=== PATIENT | male | born 1960 | race Caucasian/White ===

== ENCOUNTER 2016-11-22 12:45 | Observation (INO) | payer OTHER ==
[~2016-11-22] VITALS: Ht 172.7 cm; Wt 105.0 kg
[2016-11-22] VITALS (9 sets, daily range): BP systolic 108–123; BP diastolic 71–78; PULSE 68–73; RESP 18–20; TEMP 97.7–98.5; O2SAT 97–100
[~2016-11-22 12:45] MED LIST: APIX2.5T PO; DIGO0.25 PO; LEVA500T PO; OMEP20TA PO; SPIR25 PO; SYMB160A INH; [UNRECOGNIZED DRUG - CODE]
--- NOTE | 2016-11-22 13:46 | PD ---
HPI Chief Complaint: Dizziness Time Seen by Provider: 13:46 Travel History International Travel<30 days: No Contact w/Intl Traveler<30days: No Traveled to known affect area: No History of Present Illness HPI 56-year-old male with history as CVA in July 2016, a fib on eloquis, with pacemaker placement in October presents to emergency department for evaluation of head pressure with episodes of dizziness. This began yesterday. Patient states that at times there has been an intermittent chest sensation with it but mostly it head pressure and dizziness. He denies any other focal deficits or weakness. States that he has no deficit from his previous CVA except for memory difficulty. Denies any recent illnesses, fever, or chills. States he was advised by his head teacher Dr. garcia to come to the emergency department. PFSH Past Medical History Arthritis: Yes (right knee ) Cancer: No Cardiovascular Problems: Yes (PACEMAKER 10/29/16) Congestive Heart Failure: Yes COPD: Yes Cerebrovascular Accident: Yes (CVA 08/12/16) Endocrine: No Genitourinary: No Musculoskeletal: Yes Neurologic: No Psychiatric: No Reproductive: No Respiratory: Yes Sleep Apnea: Yes Past Surgical History Abdominal Surgery: Yes (abdominal hernia removal ) Social History Tobacco Use: Yes Substance Use: No Allergies-Medications (Allergen,Severity, Reaction): Coded Allergies: Ibuprofen (Verified Allergy, Unknown, Rash, 11/22/16) Reported Meds & Prescriptions Reported Meds & Active Scripts Active Eliquis (Apixaban) 2.5 Mg Tab 2.5 Mg PO BID To be started on , 08/22/16 Scd Soft Sleeves/Knee Johnny (Misc. Devices) 1 Mis Mis Units Reported Oxycodone-Acetaminophen 5-325 mg Tab 1 Tab PO Q6H PRN Torsemide 10 Mg Tab 10 Mg PO BID Keppra (Levetiracetam) 500 Mg Tab 500 Mg PO BID Lisinopril 2.5 Mg Tab 2.5 Mg PO DAILY Digoxin 0.25 Mg Tab 0.25 Mg PO DAILY Symbicort Inh (Budesonide/Formoterol Fumarate) 160-4.5 Mcg/Act Aero 2 Puff INH Q12HR Review of Systems Except as stated in HPI: all other systems reviewed are Neg Physical Exam Narrative GENERAL: Well-nourished male patient, ambulatory and in no acute distress SKIN: Warm and dry. HEAD: Atraumatic. Normocephalic. EYES: Pupils equal and round. No scleral icterus. No injection or drainage. ENT: No nasal bleeding or discharge. Mucous membranes pink and moist. NECK: Trachea midline. No JVD. CARDIOVASCULAR: Regular rate and rhythm. No murmur appreciated. RESPIRATORY: No accessory muscle use. Clear to auscultation. Breath sounds equal bilaterally. GASTROINTESTINAL: Abdomen soft, non-tender, nondistended. Hepatic and splenic margins not palpable. MUSCULOSKELETAL: No obvious deformities. No clubbing. No cyanosis. No edema. NEUROLOGICAL: Awake and alert. No obvious cranial nerve deficits. Motor grossly within normal limits. Normal speech. PSYCHIATRIC: Appropriate mood and affect; insight and judgment normal. Data Data Last Documented VS Vital Signs Date Time Temp Pulse Resp B/P Pulse Ox O2 Delivery O2 Flow Rate FiO2 11/22/16 16:02 99 Room Air 11/22/16 16:01 68 18 112/75 11/22/16 12:48 97.7 Orders Electrocardiogram (11/22/16 ) Basic Metabolic Panel (Bmp) (11/22/16 13:46) B-Type Natriuretic Peptide (11/22/16 13:46) Ckmb (Isoenzyme) Profile (11/22/16 13:46) Complete Blood Count With Diff (11/22/16 13:46) Magnesium (Mg) (11/22/16 13:46) Prothrombin Time / Inr (Pt) (11/22/16 13:46) Act Partial Throm Time (Ptt) (11/22/16 13:46) Troponin I (11/22/16 13:46) Chest, Single Ap (11/22/16 13:46) Ct Brain W/O Iv Contrast(Rout) (11/22/16 ) CKMB (11/22/16 14:06) CKMB% (11/22/16 14:06) Acetaminophen (Tylenol) (11/22/16 17:00) Place In Observation (11/22/16 ) Code Status (11/22/16 16:59) Vital Signs (Adult) Q4H (11/22/16 16:59) Activity Oob With Assistance (11/22/16 16:59) Wind Turbine Engineer / Telemetry .CONTINUOUS (11/22/16 16:59) Diet Heart Healthy (11/22/16 Dinner) Sodium Chloride 0.9% Flush (Ns Flush) (11/22/16 17:00) Sodium Chloride 0.9% Flush (Ns Flush) (11/22/16 21:00) Acetaminophen (Tylenol) (11/22/16 17:00) Ondansetron Inj (Zofran Inj) (11/22/16 17:00) Bisacodyl Supp (Dulcolax Supp) (11/22/16 17:00) Magnesium Hydroxide Liq (Milk Of Magnesi (11/22/16 17:00) Creatine Kinase (Cpk) (11/22/16 16:59) Creatine Kinase (Cpk) (11/22/16 22:59) Troponin I (11/22/16 16:59) Troponin I (11/22/16 22:59) Pt Request For Service (11/22/16 16:59) Scd Bilateral/Knee High RIA.BID (11/22/16 16:59) Naloxone Inj (Narcan Inj) (11/22/16 17:00) Consult Cardiology (11/22/16 ) Apixaban (Eliquis) (11/22/16 21:00) Budeson-Formot 160-4.5 Mg Inh (Symbicort (11/22/16 21:00) Digoxin (Lanoxin) (11/23/16 09:00) Levetiracetam (Keppra) (11/22/16 21:00) Lisinopril (Prinivil) (11/23/16 09:00) Oxycodone-Acetamin 5-325 Mg (Percocet (11/22/16 18:00) Torsemide (Demadex) (11/22/16 21:00) Admit Order (Ed Use Only) (11/22/16 17:12) Labs Laboratory Tests Test 11/22/16 14:06 White Blood Count 6.1 TH/MM3 Red Blood Count 5.40 MIL/MM3 Hemoglobin 17.1 GM/DL Hematocrit 50.4 % Mean Corpuscular Volume 93.2 FL Mean Corpuscular Hemoglobin 31.7 PG Mean Corpuscular Hemoglobin 34.0 % Concent Red Cell Distribution Width 14.3 % Platelet Count 131 TH/MM3 Mean Platelet Volume 10.0 FL Neutrophils (%) (Auto) 71.3 % Lymphocytes (%) (Auto) 15.8 % Monocytes (%) (Auto) 11.0 % Eosinophils (%) (Auto) 1.4 % Basophils (%) (Auto) 0.5 % Neutrophils # (Auto) 4.4 TH/MM3 Lymphocytes # (Auto) 1.0 TH/MM3 Monocytes # (Auto) 0.7 TH/MM3 Eosinophils # (Auto) 0.1 TH/MM3 Basophils # (Auto) 0.0 TH/MM3 CBC Comment DIFF FINAL Differential Comment Prothrombin Time 15.0 SEC Prothromb Time International 1.3 RATIO Ratio Activated Partial 29.4 SEC Thromboplast Time Sodium Level 140 MEQ/L Potassium Level 3.6 MEQ/L Chloride Level 98 MEQ/L Carbon Dioxide Level 32.5 MEQ/L Anion Gap 10 MEQ/L Blood Urea Nitrogen 19 MG/DL Creatinine 1.28 MG/DL Estimat Glomerular Filtration 58 ML/MIN Rate Random Glucose 84 MG/DL Calcium Level 8.9 MG/DL Magnesium Level 1.9 MG/DL Total Creatine Kinase 152 U/L Creatine Kinase MB 4.9 NG/ML Troponin I 0.24 NG/ML B-Type Natriuretic Peptide 295 PG/ML MDM Medical Decision Making Medical Screen Exam Complete: Yes Emergency Medical Condition: Yes Medical Record Reviewed: Yes Differential Diagnosis Headache versus electrolyte abnormality versus intracranial hemorrhage versus cardiac etiology Narrative Course 56-year-old male presents to emergency department for evaluation. Patient appears without distress. Workup was initiated in triage. Once a medical bed becomes available, patient will be transferred and care assumed by that provider. Condition: Stable Karen Linda Nov 22, 2016 13:46
--- NOTE | 2016-11-22 14:25 | RADRPT ---
EXAM DATE/TIME: 11/22/2016 14:00 [facility] COMPARISON: CHEST SINGLE AP, August 12, 2016, 18:37. INDICATIONS : Headache. MEDICAL HISTORY : Chronic obstructive pulmonary disease. SURGICAL HISTORY : Pacemaker. ENCOUNTER: Initial ACUITY: 1 day PAIN SCORE: 0/10 LOCATION: Bilateral chest FINDINGS: A single view of the chest demonstrates the lungs to be symmetrically aerated without evidence of mas s, infiltrate or effusion. Pacemaker is on the right. The cardiomediastinal contours are unremarkabl e. Osseous structures are intact. CONCLUSION: No acute disease. Kristian Berry MD FACR on November 22, 2016 at 14:22 Board Certified Radiologist. This report was verified electronically.
[2016-11-22 14:28] LABS: AUTOMATED NEUTROPHIL # 4.4 TH/MM3 (1.8-7.7); BASOPHIL % 0.5 % (0.0-2.0); EOSINOPHIL # 0.1 TH/MM3 (0-0.4); EOSINOPHIL % 1.4 % (0.0-4.0); HEMATOCRIT 50.4 % (39.0-51.0); HEMO FLAGS DIFF FINAL; LYMPH % 15.8 % (9.0-44.0); MEAN CELL VOLUME 93.2 FL (80.0-100.0); MEAN CORPUSCULAR HEMOGLOBIN 31.7 PG (27.0-34.0); NEUT % 71.3 % (16.0-70.0); PLATELET COUNT 131 TH/MM3 (150-450); RED CELL DISTRIBUTION WIDTH 14.3 % (11.6-17.2); WHITE BLOOD COUNT 6.1 TH/MM3 (4.0-11.0)
--- NOTE | 2016-11-22 14:34 | RADRPT ---
EXAM DATE/TIME: 11/22/2016 14:15 [facility] COMPARISON: MRI BRAIN W/O CONTRAST, August 19, 2016, 9:30. CT BRAIN W/O CONTRAST, Therese tse 2015, 18:24. INDICATIONS : Dizziness. RADIATION DOSE: 56.35 CTDIvol (mGy) MEDICAL HISTORY : Stroke. Cardiovascular disease Chronic obstructive pulmonary disease. SURGICAL HISTORY : Pacemaker. ENCOUNTER: Initial ACUITY: 2 days PAIN SCALE: 0/10 LOCATION: Cranial TECHNIQUE: Multiple contiguous axial images were obtained of the head. Using automated exposure control and adjustment of the mA and/or kV according to patient size, radiation dose was kept as low as reasonably achievable to obtain optimal diagnostic quality images. 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 The left hemisphere is unremarkable. Ventricular size appears appropriate. Posterior fossa appears normal. 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 Kristian Berry MD FACR on November 22, 2016 at 14:25 Board Certified Radiologist. This report was verified electronically.
[2016-11-22 14:36] LABS: APTT (PATIENT) 29.4 SEC (24.3-30.1); INTERNATIONAL NORMALIZED RATIO 1.3 RATIO
[2016-11-22 14:41] LABS: ANION GAP 10 MEQ/L (5-15); BICARBONATE 32.5 MEQ/L (21.0-32.0); BLOOD UREA NITROGEN 19 MG/DL (7-18); CHLORIDE 98 MEQ/L (98-107); GLOMERULAR FILTRATION RATE 58 ML/MIN (>89); MAGNESIUM 1.9 MG/DL (1.5-2.5); POTASSIUM 3.6 MEQ/L (3.5-5.1); SODIUM (NA) 140 MEQ/L (136-145)
[2016-11-22 14:44] LABS: CREATINE KINASE 152 U/L (39-308)
[2016-11-22 14:56] LABS: CKMB 4.9 NG/ML (0.5-3.6)
[2016-11-22] MEDS ORDERED: LEVE500 PO (16:15)
[2016-11-22] MEDS ORDERED: OXYC1TAB63 PO (16:15)
[2016-11-22] MEDS ORDERED: TORS10TA2 PO (16:15)
[2016-11-22] MEDS ORDERED: LISI2.5T3 PO (16:15)
[2016-11-22] MEDS ORDERED: ACETAMINOPHEN 325 MG TAB PO ONE (17:00)
[2016-11-22] MEDS ORDERED: ONDANSETRON HCL 4 MG/2 ML VIAL IVP PRN (17:00)
[2016-11-22] MEDS ORDERED: NALOXONE HCL 0.4 MG/ML AMP IV PRN (17:00)
[2016-11-22] MEDS ORDERED: ACETAMINOPHEN 325 MG TAB PO PRN (17:00)
[2016-11-22] MEDS ORDERED: BISACODYL 10 MG SUPP PR PRN (17:00)
[2016-11-22] MEDS ORDERED: SODIUM CHLORIDE 0.9% FLUSH 5 ML FLUSH FLUSH PRN (17:00)
[2016-11-22] MEDS ORDERED: MAGNESIUM HYDROXIDE SUSP 30 ML CUP PO PRN (17:00)
--- NOTE | 2016-11-22 17:12 | PD ---
Physical Exam Narrative I, Dr. Strong, have reviewed the advance practice practitioner's documentation and am in agreement, met with the patient face to face, made the diagnosis, and the medical decision making was done by me. *My assessment and Findings: Dizziness secondary to low EF vs. ACS vs. arrhythmia vs. CVA 56yo M with dizziness that felt more like lightheadedness and pressure behind right forehead since yesterday. Pt called his biometrics head Dr. Terry's office and was inform to come to the ED for further evaluation. No focal neurologic deficit on exam. No ttp bilateral frontal sinus. Lungs are clear to auscultation. +Bilateral lower ext edema. Labs reviewed, no leukocytosis. Troponin 0.24. Pt has constant everyday pain in midsternal chest. Pressure like and is there every day. Discussed with Dr. Terry and he agreed with observation. He does not remember when pt's last cardiac stress test was. BNP 295. CXR showed no acute disease. 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 Discussed with Dr. Perez and accepted to his service. Data Data Last Documented VS Vital Signs Date Time Temp Pulse Resp B/P Pulse Ox O2 Delivery O2 Flow Rate FiO2 11/22/16 16:02 99 Room Air 11/22/16 16:01 68 18 112/75 11/22/16 12:48 97.7 Orders Electrocardiogram (11/22/16 ) Basic Metabolic Panel (Bmp) (11/22/16 13:46) B-Type Natriuretic Peptide (11/22/16 13:46) Ckmb (Isoenzyme) Profile (11/22/16 13:46) Complete Blood Count With Diff (11/22/16 13:46) Magnesium (Mg) (11/22/16 13:46) Prothrombin Time / Inr (Pt) (11/22/16 13:46) Act Partial Throm Time (Ptt) (11/22/16 13:46) Troponin I (11/22/16 13:46) Chest, Single Ap (11/22/16 13:46) Ct Brain W/O Iv Contrast(Rout) (11/22/16 ) CKMB (11/22/16 14:06) CKMB% (11/22/16 14:06) Acetaminophen (Tylenol) (11/22/16 17:00) Place In Observation (11/22/16 ) Code Status (11/22/16 16:59) Vital Signs (Adult) Q4H (11/22/16 16:59) Activity Oob With Assistance (11/22/16 16:59) Warp Tying Machine Tender / Telemetry .CONTINUOUS (11/22/16 16:59) Diet Heart Healthy (11/22/16 Dinner) Sodium Chloride 0.9% Flush (Ns Flush) (11/22/16 17:00) Sodium Chloride 0.9% Flush (Ns Flush) (11/22/16 21:00) Acetaminophen (Tylenol) (11/22/16 17:00) Ondansetron Inj (Zofran Inj) (11/22/16 17:00) Bisacodyl Supp (Dulcolax Supp) (11/22/16 17:00) Magnesium Hydroxide Liq (Milk Of Magnesi (11/22/16 17:00) Creatine Kinase (Cpk) (11/22/16 16:59) Creatine Kinase (Cpk) (11/22/16 22:59) Troponin I (11/22/16 16:59) Troponin I (11/22/16 22:59) Pt Request For Service (11/22/16 16:59) Scd Bilateral/Knee High RIA.BID (11/22/16 16:59) Naloxone Inj (Narcan Inj) (11/22/16 17:00) Consult Cardiology (11/22/16 ) Apixaban (Eliquis) (11/22/16 21:00) Budeson-Formot 160-4.5 Mg Inh (Symbicort (11/22/16 21:00) Digoxin (Lanoxin) (11/23/16 09:00) Levetiracetam (Keppra) (11/22/16 21:00) Lisinopril (Prinivil) (11/23/16 09:00) Oxycodone-Acetamin 5-325 Mg (Percocet (11/22/16 18:00) Torsemide (Demadex) (11/22/16 21:00) Admit Order (Ed Use Only) (11/22/16 17:12) Labs Laboratory Tests Test 11/22/16 14:06 White Blood Count 6.1 TH/MM3 Red Blood Count 5.40 MIL/MM3 Hemoglobin 17.1 GM/DL Hematocrit 50.4 % Mean Corpuscular Volume 93.2 FL Mean Corpuscular Hemoglobin 31.7 PG Mean Corpuscular Hemoglobin 34.0 % Concent Red Cell Distribution Width 14.3 % Platelet Count 131 TH/MM3 Mean Platelet Volume 10.0 FL Neutrophils (%) (Auto) 71.3 % Lymphocytes (%) (Auto) 15.8 % Monocytes (%) (Auto) 11.0 % Eosinophils (%) (Auto) 1.4 % Basophils (%) (Auto) 0.5 % Neutrophils # (Auto) 4.4 TH/MM3 Lymphocytes # (Auto) 1.0 TH/MM3 Monocytes # (Auto) 0.7 TH/MM3 Eosinophils # (Auto) 0.1 TH/MM3 Basophils # (Auto) 0.0 TH/MM3 CBC Comment DIFF FINAL Differential Comment Prothrombin Time 15.0 SEC Prothromb Time International 1.3 RATIO Ratio Activated Partial 29.4 SEC Thromboplast Time Sodium Level 140 MEQ/L Potassium Level 3.6 MEQ/L Chloride Level 98 MEQ/L Carbon Dioxide Level 32.5 MEQ/L Anion Gap 10 MEQ/L Blood Urea Nitrogen 19 MG/DL Creatinine 1.28 MG/DL Estimat Glomerular Filtration 58 ML/MIN Rate Random Glucose 84 MG/DL Calcium Level 8.9 MG/DL Magnesium Level 1.9 MG/DL Total Creatine Kinase 152 U/L Creatine Kinase MB 4.9 NG/ML Troponin I 0.24 NG/ML B-Type Natriuretic Peptide 295 PG/ML MDM Supervised Visit with VANNESA: Yes Interpretation(s) EKG: NSR 70bpm. Q wave II, III, aVF, V1-V3. TWI V5-V6. Diagnosis Primary Impression: Dizziness Admitting Information Admitting Physician Requests: Observation Condition: Stable Sandy Strong DO Nov 22, 2016 17:12
--- NOTE | 2016-11-22 17:30 | HHI.HP ---
HPI Service [facility] Hospitalists Primary Care Physician William Hamilton MD Admission Diagnosis Elevated troponin Chief Complaint: Dizziness Travel History International Travel<30 Days: No Contact w/Intl Traveler <30 Da: No Traveled to Known Affected Are: No History of Present Illness Mr. Mckee is a pleasant 56 y/o male with A. fib, cardiomyopathy of uncertain etiology s/p ICD on 10/28/16, hyperlipidemia, COPD, EVERTON, venous insufficiency and recent CVA right frontal CVA in 07/2016. He had LHC in 2013 that shows normal coronary arteries. Pt follows with Dr. Terry. He presented to the ED at [facility] on 11/22/16 with complaints of generalized head pressure with episodes of dizziness which began yesterday. He states that he thought this was related to a temperature change in his house. Patient states that he chronically has intermittent chest pressure and this is not increased from baseline. He feels like there may be a component of gas pain related to this chest pressure because he has some relief with burping. There is no radiation of this chest pressure. There is no associated nausea/vomiting or diaphoresis. He has had chronic issues with night sweats for over a year. No reported fevers with the night sweats. Pt contacted Dr. Terry's office with these symptoms and was instructed to go to the ED for further workup. He denies any focal neurological deficits or extremity weakness. There has been no facial droop or slurring of speech. States that he has no deficit from his previous CVA except for memory difficulty. Denies any recent illnesses. 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 CXR was negative. Troponin I was mildly elevated at 0.24. Pt is being admitted for observation and for serial CE/EKGs. Review of Systems Constitutional: COMPLAINS OF: Dizziness Respiratory: DENIES: Cough, Shortness of breath Cardiovascular: COMPLAINS OF: Chest pain, Lower Extremity Edema (chronic), DENIES: Dyspnea on Exertion Gastrointestinal: DENIES: GERD, Nausea, Vomiting Genitourinary: DENIES: Urgency, Hematuria Integumentary: DENIES: Rash Neurologic: DENIES: Abnormal gait, Localized weakness, Speech Problems, Poor Balance Past Family Social History Past Medical History A. fib Cardiomyopathy with EF 25% s/p ICD on 10/28/16 CVA in right frontal lobe in 07/2016 COPD HTN GERD Hx of H. pylori infection EVERTON Venous insufficiency Vitamin D deficiency 2D echo 10/01/2016 - Diffuse global hypokinesis - Mild concentric LVH - Estimated EF 25% - LA moderately dilated - RA mildly dilated - RV mildly dilated - Trace mitral regurg - Mild tricuspid valve regurg - Estimated PA pressure 29.4mmHg - Mild pulmonary valve regurg Outpt Lexiscan 07/2016 --> Severely reduced LV systolic function with global hypokinesis, EF 25% and perfusion imaging reveals no ischemia present. Past Surgical History Single chamber ICD placed on 10/28/[address] 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 HEENT: Atraumatic. Normocephalic. No temporal or scalp tenderness. No scleral icterus. Airway patent. NECK: Trachea midline, supple, nontender. CARDIO: Regular. ICD incision is healing well RESP: CTA bilaterally. No wheezes, rales, or rhonchi. ABD: +BS, soft, non-tender, nondistended. EXT: Bilateral LE pitting edema, chronic, not worse than baseline per the pt. NEURO: Awake and alert. Motor and sensory grossly within normal limits. Normal speech. Laboratory Laboratory Tests Test 11/22/16 14:06 White Blood Count 6.1 Red Blood Count 5.40 Hemoglobin 17.1 Hematocrit 50.4 Mean Corpuscular Volume 93.2 Mean Corpuscular Hemoglobin 31.7 Mean Corpuscular Hemoglobin 34.0 Concent Red Cell Distribution Width 14.3 Platelet Count 131 Mean Platelet Volume 10.0 Neutrophils (%) (Auto) 71.3 Lymphocytes (%) (Auto) 15.8 Monocytes (%) (Auto) 11.0 Eosinophils (%) (Auto) 1.4 Basophils (%) (Auto) 0.5 Neutrophils # (Auto) 4.4 Lymphocytes # (Auto) 1.0 Monocytes # (Auto) 0.7 Eosinophils # (Auto) 0.1 Basophils # (Auto) 0.0 CBC Comment DIFF FINAL Differential Comment Prothrombin Time 15.0 Prothromb Time International 1.3 Ratio Activated Partial 29.4 Thromboplast Time Sodium Level 140 Potassium Level 3.6 Chloride Level 98 Carbon Dioxide Level 32.5 Anion Gap 10 Blood Urea Nitrogen 19 Creatinine 1.28 Estimat Glomerular Filtration 58 Rate Random Glucose 84 Calcium Level 8.9 Magnesium Level 1.9 Total Creatine Kinase 152 Creatine Kinase MB 4.9 Troponin I 0.24 B-Type Natriuretic Peptide 295 Result Diagram: 11/22/16 1406 11/22/16 1406 Imaging Last Impressions Chest X-Ray 11/22/16 1346 Signed Impressions: Service Date/Time: Tuesday, November 22, 2016 14:00 - CONCLUSION: No acute disease. Kristian Berry MD FACR Septic Shock Reassessment Heart: Regular rate and rhythm Lungs: Clear Skin: Warm Peripheral Pulses: Bounding Right Radial Bounding Left Radial Bounding Right Popliteal Bounding Left Popliteal Bounding Right Dorsalis Pedis Bounding Left Dorsalis Pedis Bounding Right Posterior Tibial Bounding Left Posterior Tibial Capillary Refill: <2 seconds Assessment and Plan Problem List: (1) Elevated troponin I measurement Status: Acute Plan: - Pt admitted for further evaluation of elevated troponin - Pt has had chronic chest pain and feels there may be a component of gas pains related to his chest pain. - We will order serial CE and EKGs - Pt had recent Lexiscan outpt in 07/2016 which was negative. - Consult Cardiology - Resume home meds - Simethicone PRN - PPI - Monitor vitals closely - Supportive care - DVT prophylaxis with SCDs (2) Dizziness Status: Acute Plan: - Etiology unclear. - Pt reports that this dizziness has resolved at the time of examination. - Head CT was negative for any new changes. - Monitor vitals. - Check Orthostatics (3) Cardiomyopathy Status: Chronic Plan: - Pt with hx of cardiomyopathy with EF 25% of unclear etiology. - Pt s/p ICD placement on 10/28/[address] Silva - Home meds resumed - 2D echo in 09/2016 reviewed above. (4) Atrial fibrillation Status: Chronic Plan: - Pt with a hx of atrial fibrillation - On Digoxin and Eliquis 2.5mg po BID - Check Dig level - Telemetry (5) COPD (chronic obstructive pulmonary disease) Status: Chronic Plan: - Cont. home meds - Duonebs PRN (6) EVERTON (obstructive sleep apnea) Status: Chronic (7) Venous (peripheral) insufficiency Status: Chronic Plan: - Cont. Torsemide - SCDs Assessment and Plan Patient examined. Assessment and plan formulated with Alyce Mendieta PA-C. I agree with the above. Problem Qualifiers (1) Atrial fibrillation: Qualified Code: I48.0 - Paroxysmal atrial fibrillation Alyce Mendieta Nov 22, 2016 17:30 Joselito Perez DO Nov 23, 2016 13:23
[2016-11-22] MEDS ORDERED: oxyCODONE/ACETAMINOPHEN 5 MG/325 MG TAB PO PRN (18:00)
[2016-11-22] MEDS ORDERED: SIMETHICONE 80 MG CHEWABLE TAB CHEW PRN (18:15)
[2016-11-22] MEDS ORDERED: PANTOPRAZOLE SOD 40 MG DELAYED RELEASE TAB PO ONE (18:15)
[2016-11-22] MEDS ORDERED: RESP: ALBUTEROL 2.5 MG/IPRATROPIUM 0.5 MG NEB (PRN) NEB (18:15)
[2016-11-22] MEDS: TORSEMIDE 5 MG TAB PO SCH (21:00)
[2016-11-22] MEDS: SODIUM CHLORIDE 0.9% FLUSH 5 ML FLUSH FLUSH SCH (22:23)
[2016-11-22] MEDS: BUDESONIDE-FORMOTEROL 160/4.5 MCG INHALER INH SCH (22:23)
[2016-11-22] MEDS: APIXABAN 2.5 MG TABLET PO SCH (22:24)
[2016-11-22] MEDS: levETIRAcetam 500 MG TAB PO SCH (22:24)
[2016-11-23 04:10] VITALS: BP 107/70; PULSE 70; RESP 20; TEMP 97.6; O2SAT 98
[2016-11-23 07:33] VITALS: BP 109/69; PULSE 63; RESP 18; TEMP 97.7; O2SAT 97
[2016-11-23 08:00] VITALS: PULSE 73
[2016-11-23 08:10] VITALS: BP 104/57; PULSE 76; RESP 18; TEMP 98; O2SAT 96
[2016-11-23] MEDS: BUDESONIDE-FORMOTEROL 160/4.5 MCG INHALER INH SCH (08:53)
[2016-11-23] MEDS: APIXABAN 2.5 MG TABLET PO SCH (08:54)
[2016-11-23] MEDS: TORSEMIDE 5 MG TAB PO SCH (08:54)
[2016-11-23] MEDS: levETIRAcetam 500 MG TAB PO SCH (08:54)
[2016-11-23] MEDS: SODIUM CHLORIDE 0.9% FLUSH 5 ML FLUSH FLUSH SCH (08:54)
[2016-11-23] MEDS ORDERED: LISINOPRIL 5 MG TAB PO SCH (09:00)
[2016-11-23] MEDS ORDERED: PANTOPRAZOLE SOD 40 MG DELAYED RELEASE TAB PO SCH (09:00)
[2016-11-23] MEDS ORDERED: DIGOXIN 0.25 MG TAB PO SCH (09:00)
--- NOTE | 2016-11-23 09:48 | HHI.PR ---
Subjective Remarks Pt denies any further chest pressure or dizziness. He has been ambulating without difficulty Tolerating his diet Vital signs are stable. Objective Vitals Vital Signs Date Time Temp Pulse Resp B/P Pulse Ox O2 Delivery O2 Flow Rate FiO2 11/23/16 07:33 97.7 63 18 109/69 97 11/23/16 04:10 97.6 70 20 107/70 98 11/22/16 23:44 98.0 70 20 118/78 100 11/22/16 21:07 69 11/22/16 19:53 98.5 68 20 108/71 97 11/22/16 19:27 78 18 123/78 11/22/16 19:26 77 18 119/77 11/22/16 19:25 67 18 108/72 11/22/16 19:23 68 18 109/76 98 Room Air 11/22/16 16:02 99 Room Air 11/22/16 16:01 68 18 112/75 98 Room Air 11/22/16 12:48 97.7 73 20 116/74 99 Room Air Result Diagram: 11/22/16 1406 11/22/16 1406 Other Results Laboratory Tests Test 11/22/16 11/22/16 11/23/16 14:06 21:45 02:10 White Blood Count 6.1 TH/MM3 Red Blood Count 5.40 MIL/MM3 Hemoglobin 17.1 GM/DL Hematocrit 50.4 % Mean Corpuscular Volume 93.2 FL Mean Corpuscular Hemoglobin 31.7 PG Mean Corpuscular Hemoglobin 34.0 % Concent Red Cell Distribution Width 14.3 % Platelet Count 131 TH/MM3 Mean Platelet Volume 10.0 FL Neutrophils (%) (Auto) 71.3 % Lymphocytes (%) (Auto) 15.8 % Monocytes (%) (Auto) 11.0 % Eosinophils (%) (Auto) 1.4 % Basophils (%) (Auto) 0.5 % Neutrophils # (Auto) 4.4 TH/MM3 Lymphocytes # (Auto) 1.0 TH/MM3 Monocytes # (Auto) 0.7 TH/MM3 Eosinophils # (Auto) 0.1 TH/MM3 Basophils # (Auto) 0.0 TH/MM3 CBC Comment DIFF FINAL Differential Comment Prothrombin Time 15.0 SEC Prothromb Time International 1.3 RATIO Ratio Activated Partial 29.4 SEC Thromboplast Time Sodium Level 140 MEQ/L Potassium Level 3.6 MEQ/L Chloride Level 98 MEQ/L Carbon Dioxide Level 32.5 MEQ/L Anion Gap 10 MEQ/L Blood Urea Nitrogen 19 MG/DL Creatinine 1.28 MG/DL Estimat Glomerular Filtration 58 ML/MIN Rate Random Glucose 84 MG/DL Calcium Level 8.9 MG/DL Magnesium Level 1.9 MG/DL Total Creatine Kinase 152 U/L 154 U/L 136 U/L Creatine Kinase MB 4.9 NG/ML Troponin I 0.24 NG/ML 0.24 NG/ML 0.25 NG/ML B-Type Natriuretic Peptide 295 PG/ML Imaging Last Impressions Chest X-Ray 11/22/16 1346 Signed Impressions: Service Date/Time: Tuesday, November 22, 2016 14:00 - CONCLUSION: No acute disease. Kristian Berry MD FACR Objective Remarks General: NAD, AAOx3 Chest: CTA Cardiac: Regular Abd: +BS, soft ND/NT Ext: 1+ Bilateral LE pitting edema, baseline Procedures 2D echo 10/01/2016 - Diffuse global hypokinesis - Mild concentric LVH - Estimated EF 25% - LA moderately dilated - RA mildly dilated - RV mildly dilated - Trace mitral regurg - Mild tricuspid valve regurg - Estimated PA pressure 29.4mmHg - Mild pulmonary valve regurg Outpt Lexiscan 07/2016 --> Severely reduced LV systolic function with global hypokinesis, EF 25% and perfusion imaging reveals no ischemia present. A/P Problem List: (1) Elevated troponin I measurement Status: Acute Plan: - Pt admitted for further evaluation of elevated troponin - Pt has had chronic chest pain and feels there may be a component of gas pains related to his chest pain. - Serial CE are flat - Pt had recent Lexiscan outpt in 07/2016 which was negative. - Await Cardiology consultation - Cont. home meds - Simethicone PRN - PPI - Monitor vitals closely - Supportive care - DVT prophylaxis with SCDs (2) Dizziness Status: Acute Plan: - Etiology unclear. - Pt reports that this dizziness has resolved at the time of examination. - Head CT was negative for any new changes. - Tylenol did seem to help with his headache - Monitor vitals. - Orthostatics were negative. (3) Cardiomyopathy Status: Chronic Plan: - Pt with hx of cardiomyopathy with EF 25% of unclear etiology. - Pt s/p ICD placement on 10/28/[address] Silva - Home meds resumed - 2D echo in 09/2016 reviewed above. (4) Atrial fibrillation Status: Chronic Plan: - Pt with a hx of atrial fibrillation - On Digoxin and Eliquis 2.5mg po BID - Check Dig level - Telemetry (5) COPD (chronic obstructive pulmonary disease) Status: Chronic Plan: - Cont. home meds - Duonebs PRN (6) [place] (obstructive sleep apnea) Status: Chronic (7) Venous (peripheral) insufficiency Status: Chronic Plan: - Cont. Torsemide - SCDs Assessment and Plan - No chest pain since admission. Nor chest pressure or any anginal equivalents. - troponin readings are elevated with flat pattern: 0.24, 0.24, 0.25 - serial EKGs did NOT show any acute ischemic changes - Case d/w Cardiology, Dr. Mclain. Agrees with discharge to home today. - f/u with regular Author'S Agent, Dr. Melo Terry in 2-3 days Problem Qualifiers (1) Atrial fibrillation: Qualified Code: I48.0 - Paroxysmal atrial fibrillation Alyce Mendieta Nov 23, 2016 09:48 Joselito Perez DO Nov 23, 2016 13:25
[2016-11-23 11:30] VITALS: BP 101/68; PULSE 66; RESP 18; TEMP 98.1; O2SAT 97
[2016-11-23] MEDS ORDERED: PANT40TA3 PO (13:21)
--- NOTE | 2016-11-23 13:33 | MB ---
cc: ANGELITA GRAHAM M.D. DATE OF CONSULTATION: 11/23/2016 CHIEF COMPLAINT Abnormal troponins. HISTORY OF PRESENT ILLNESS Mr. Mckee is a 56-year-old, male with a history of atrial fibrillation and a primary cardiomyopathy. He had an ICD placed on 10/28/[address] Silva. There is a history of hyperlipidemia, COPD, sleep apnea, venous insufficiency and a right-sided cerebrovascular accident in July of 2016. At the time of his cerebrovascular accident, he had mild elevations of his troponins but they were flat. The highest troponin at that time was 0.36. His echocardiogram showed a 20-25% ejection fraction and he has chronic class II-III congestive heart failure. He confirms that his cardiac catheterization in 2013 showed normal coronary arteries. He confirms that he had a stress nuclear study as an outpatient in July of [address] Perez who can access the records has indicated it was a normal study or at least that is what has been related to me. Since his cerebrovascular accident, he has been having some chest heaviness. The chest heaviness is really unchanged and lasts hours at a time is relieved by belching. He thinks it may be precipitated by eating but it is unassociated with activity. There are no other precipitating or alleviating events. It is a very minor heaviness in his chest that he has previously reported to Dr. Terry and has been instructed to call only if it gets worse. This is unchanged for the past three months although with recent GI therapy in the emergency room it has resolved. He has also had some lightheadedness that may be orthostatic in nature and he did have his Demodex dose reduced the last two days to a once daily dose instead of a twice daily dose. He comes in now because of a sensation of fullness or heaviness in his head. Whenever it is cold he wears a cap to keep his head warm but if he does not it creates a discomfort and full feeling. This heavy feeling in his head was associated with a sensation of dizziness but he has had no palpitation or ICD shocks. He came into the emergency room where those symptoms were relieved by Tylenol. He continues to have mild chronic dyspnea on exertion but this too is unchanged from baseline. In short any cardiac complaints that he is potentially experiencing are absolutely stable and unchanged for at least three months. He also complains of chronic night sweats and those were unchanged over the past year. He has had no fever or chills. He has had no reported discomfort, drainage or soreness from his ICD site. PHYSICAL EXAMINATION GENERAL: On general inspection, he is an alert exceptionally pleasant gentleman lying in bed in no distress. VITAL SIGNS: Blood pressure of 120/70, pulse of 70, respirations of 14, the patient is afebrile, saturations were 100% on room air. HEENT/NECK: Unremarkable for the patient's age. LUNGS: Clear. CARDIOVASCULAR: Regular rate and rhythm without murmurs, rubs, clicks or gallops. ABDOMEN: Soft without masses, tenderness, organomegaly. Bowel sounds within normal limits. GENITAL/RECTAL: Deferred. EXTREMITIES: 1+ edema bilaterally with trophic skin changes and varicosities consistent with his history of venous insufficiency. He has no neck vein distension. NEUROLOGIC: Per the medical team but grossly intact without focal findings. LABORATORY DATA Chest x-ray is negative. He has mild cardiomegaly. CBC is unremarkable. His INR is 1.3. Basic metabolic panel is normal. Magnesium is 1.9. Troponins were all elevated at 0.24, 0.24 and 0.25. They are basically unchanged since the troponins obtained in July of 2016. BNP is minimally elevated at 295. EKG shows normal sinus rhythm with left axis deviation and generalize low voltage. The study is however unchanged from 08/13/16. ASSESSMENT AND PLAN Essentially the patient presents with no symptoms suggesting acute coronary syndrome and actually no symptoms suggesting any change in his baseline cardiac status. He does appear to have mild chronic class II to perhaps class III congestive failure, this likely explains his chronic troponin elevation. His EKGs are unchanged and he is known to have no significant coronary disease with a reported negative stress nuclear study just a few months ago. 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 Terry. He comes into the hospital for a sensation of fullness in his head which is clearly not a cardiac issue and I would defer evaluation of that problem to the medical team. His ICD site appears perfectly intact and he is presently in sinus rhythm. I do not think there is any particular point to further inpatient evaluation. I have discussed it with the patient and and they are very anxious to go ahead on home as he feels well. I told him this would be permissible but that I needed to talk to the medical team and be certain that he could see Dr. Terry early next week. He just needs ongoing followup and somebody to review all of the in-hospital findings. Again, I am consulted primarily because of the abnormal troponins and these are pretty clearly chronic and likely related to his chronic CHF. There is absolutely nothing in his presentation otherwise to suggest any cardiac instability or change in baseline status for at least several months. I will follow with you only as needed. We will re-contact Dr. Perez and discuss the case and have him verify that the recent nuclear was in fact normal but otherwise I have no specific suggestions or recommendations. MD FLAVIA Onofre/DAVIDSON /12:43 PM /1:04 PM
--- NOTE | 2016-11-23 19:14 | EKG ---
Date Performed: 11/22/2016 Time Performed: 13:50:48 PTAGE: 56 years EKG: Sinus rhythm MARKED RIGHT AXIS DEVIATION LOW QRS VOLTAGE IN EXTREMITY LEADS PATTERN CONSISTENT WITH PULMONARY DIS EASE INFERIOR MYOCARDIAL INFARCTION Since previous tracing, no significant change noted ABNORMAL ECG PREVIOUS TRACING : 08/13/2016 07.09 DOCTOR: Ilya Voss Interpretating Date/Time 11/23/2016 19:14:38
== END 2016-11-23 14:22 | disposition home or self-care (01) ==
LOC: NEPC 12:45 → NEDA 17:14 → NEPHCDU 19:47
PROVIDERS: ADMIT Hospitalist; ATTEND Hospitalist
DX: R79.89 Other specified abnormal findings of blood chemistry (principal); R42 Dizziness and giddiness; I42.9 Cardiomyopathy, unspecified; I48.91 Unspecified atrial fibrillation; J44.9 Chronic obstructive pulmonary disease, unspecified; G47.33 Obstructive sleep apnea (adult) (pediatric); I87.2 Venous insufficiency (chronic) (peripheral); E78.5 Hyperlipidemia, unspecified; I10 Essential (primary) hypertension; K21.9 Gastro-esophageal reflux disease without esophagitis; Z86.73 Personal history of transient ischemic attack (TIA), and cerebral infarction without residual deficits; Z95.810 Presence of automatic (implantable) cardiac defibrillator
CPT/HCPCS: 70450; 71010; 80048; 80162; 82550; 82552; 83735; 83880; 84484; 85025; 85610; 85730; 93005; 97161; 99285; G0378; G8987; G8988